=== PATIENT | female | born 1990 | race African-American/Black ===

== ENCOUNTER 2016-09-19 22:17 | Emergency (ER) | payer OTHER ==
[2016-09-19 23:40] VITALS: BP 112/68
== END 2016-09-19 23:40 | disposition home or self-care (01) ==
LOC: ED 22:17
DX: B09 Unspecified viral infection characterized by skin and mucous membrane lesions (principal); Z79.899 Other long term (current) drug therapy

== ENCOUNTER 2018-12-07 15:18 | Emergency (ER) | payer OTHER ==
[~2018-12-07] VITALS: Ht 162.6 cm; Wt 88.9 kg
[2018-12-07 15:28] VITALS: BP 109/61
[2018-12-07 17:26] LABS: CALCIUM 8.3 mg/dL (8.5-10.1); CARBON DIOXIDE 31.3 mmol/L (21-32); CREATININE SERUM 1.2 mg/dL (0.6-1.0); POTASSIUM SERUM 4.2 mmol/L (3.5-5.1)
[2018-12-07 17:28] LABS: BASOPHIL % 0.4 % (0-2); PLATELET COUNT 234 x10^3mcL (130-400); RED CELL DISTRIBUTION WIDTH 14.5 % (11.5-14.5)
[2018-12-07 17:33] LABS: ALBUMIN 3.5 g/dL (3.4-5.0); BILIRUBIN TOTAL 0.16 mg/dL (0.20-1.00)
== END 2018-12-07 18:12 | disposition home or self-care (01) ==
LOC: ED 15:18
PROVIDERS: Emergency Medicine
DX: M94.0 Chondrocostal junction syndrome [Tietze] (principal); M32.9 Systemic lupus erythematosus, unspecified; M06.9 Rheumatoid arthritis, unspecified
CPT/HCPCS: 36415; J1885